=== PATIENT | female | born 1980 | race Caucasian/White ===

== ENCOUNTER 2019-06-18 06:02 | Inpatient (IN) ==
--- NOTE | 2019-06-17 12:51 | History & Physical Report ---
Date of Service June 17, 2019 Assessment & Plan (1) Supervision of elderly multigravida: IUP at 39 weeks presents for repeat section. the procedure & its risks were discussed in detail with the patient and her daughter. all questions were answered to her satisfaction. (2) H/O section: History of Present Illness Primary Care Provider: NO PCP Patient is a 39 yo white female EDC- 06/23/19 who presents at 39+ weeks for repeat . she was a late transfer from [place] at 33 weeks. is complicated by AMA and suspected ovarian cyst which has not changed in size on ultrasound. NST's have been reactive. GBS -negative/ blood type B- positive. Allergies Allergy/AdvReac Type Severity Reaction Status Date / Time ibuprofen Allergy Severe Anaphylaxis Verified 06/17/19 09:46 Home Medications Home Medications Medication Instructions Recorded Confirmed Type vit-iron fum-folic ac 1 tab PO DAILY 06/05/19 06/17/19 History [ Vitamin] Patient History Medical History (Updated 06/11/19 @ 13:34 by Shelly Trammell) Hx of ectopic Supervision of normal intrauterine in multigravida Varicella vaccine Surgical History History of salpingectomy Hx of LASIK Social History (Updated 05/06/19 @ 13:37 by Ca Pierre) Preferred Language: Maltese Communication Ability: Effective Beliefs That Will Affect Care: Gnosticist Gnosticist Beliefs: NO MEN IN ROOM marital status: marital status details: , in [place], Call Brother [phone] Current Living Situation: Family Current Living Situation Comment: lives with brother current occupational status: unemployed Feels Safe at Home: Yes Smoking Status: Never smoker Hx Alcohol Use: No Hx Substance Use: No Review of Systems All systems reviewed & are unremarkable except as noted in HPI & below Physical Exam Constitutional: WD/WN, vitals as above Respiratory: normal respiratory effort, lungs clear to auscultation Cardiovascular: RRR, no murmur, no edema Gastrointestinal (Abdomen): normal bowel sounds, soft, nontender, no hepatosplenomegaly Inspection/Auscultation: + abdominal surgical scar (well healed low transverse) Psychiatric: A+Ox3, euthymic affect Genitourinary: OB Exam Abdomen: + fundal height (37 cm), + heart tones (150), + vertex, + estimated weight (7-8 pounds) and + irregular contractions OB Exam Monitor Tracing: + external FHT monitor used, + external uterine monitor used, + category I and + normal FHT variability cervix exam declined
[~2019-06-18 06:02] MED LIST: CEFAZOLIN 2,000 MG in SYRINGE 0 ML IV SCH; CITRIC ACID/SODIUM CITRATE 15 ML UDC PO SCH; LACTATED RINGER'S 1,000 ML IV SCH
[2019-06-18] MEDS ORDERED: SODIUM CHLORIDE 0.9% 250 ML IV PRN (06:06)
[2019-06-18 06:25] LABS: Basophils # (auto) 0.01 K/uL (0-0.2); Basophils % (auto) 0.1 %; Eosinophils # (auto) 0.14 K/uL (0-0.5); Eosinophils % (auto) 2.1 %; Hematocrit (blood only) 38.4 % (37-47); Hemoglobin 12.5 g/dL (12.0-16.0); Immature Granulocytes # (auto) 0.08 K/uL (0.00-0.02); Immature Granulocytes % (auto) 1.2 %; Lymphocytes # (auto) 2.42 K/uL (1.2-3.4); Lymphocytes % (auto) 35.6 %; Mean Corpuscular Hemoglobin 22.3 pg (25-34); Mean Corpuscular Volume 68.4 fL (80-100); Mean Platelet Volume 10.8 fL (7.4-10.4); Monocytes # (auto) 0.66 K/uL (0.11-0.59); Monocytes % (auto) 9.7 %; Neutrophils # (auto) 3.48 K/uL (1.4-6.5); Neutrophils % (auto) 51.3 %; Platelet Count 173 K/uL (130-400); RDW Coefficient of Variation 14.7 % (11.5-14.5); RDW Standard Deviation 36.2 fL (36.4-46.3); Red Blood Count 5.61 M/uL (4.2-5.4); White Blood Count 6.79 K/uL (4.8-10.8)
[2019-06-18 06:34] LABS: Mean Corpuscular Hgb Conc 32.6 g/dL (32-36)
[2019-06-18 06:58] LABS: Microcytosis Present
[2019-06-18] MEDS ORDERED: MoRPHine SULFATE PF 1 MG/ML 10 ML AMP/VIAL ONE (07:14)
[2019-06-18] MEDS ORDERED: fentaNYL citrate 100 MCG/2 ML VIAL ONE (07:14)
--- NOTE | 2019-06-18 07:21 | History & Physical Bridge Note ---
Date of Service June 18, 2019 History & Physical Bridge Note I have examined the patient, reviewed the History & Physical and in the interval since the performance of the History & Physical I have noted the following changes of clinical significance: no changes noted
--- NOTE | 2019-06-18 07:25 | Anesthesiology Consultation ---
Date of Service June 18, 2019 Assessment & Plan (1) Encounter for pre-operative examination: Chart Review Chart Review: Acceptable Risk for Surgery and Patient NOT seen in Pre Admission Testing Consults Requested none ASA ASA2 Proposed Anesthesia Anesthesia Type: Spinal Risk / Benefits Reviewed With: PT / POA / Parent / Guardian, Accepts Plan and Informed Consent Obtained History Surgery Operation Date: 06/18/19 07:30 Proposed Procedures p Section in - Yeimi Khanna MD, FACOG Height/Weight Height: 5 ft 2 in Weight: 90.718 kg Allergies Allergy/AdvReac Type Severity Reaction Status Date / Time ibuprofen Allergy Severe Anaphylaxis Verified 06/18/19 06:43 acetaminophen Allergy Anaphylaxis Verified 06/18/19 06:43 [From Excedrin Migraine] aspirin Allergy Anaphylaxis Verified 06/18/19 06:43 [From Excedrin Migraine] caffeine Allergy Anaphylaxis Verified 06/18/19 06:43 [From Excedrin Migraine] Medications Home Medications Medication Instructions Recorded Confirmed Last Taken vit-iron fum-folic ac 1 tab PO DAILY 06/05/19 06/18/19 06/17/19 08:00 [ Vitamin] NPO Date Last Intake of Fluids: 06/18/19 Time Last Intake of Fluids: 04:30 Date Last Intake of Solids: 06/17/19 Time Last Intake of Solids: 23:59 Past Medical History Medical History Hx of ectopic Supervision of normal intrauterine in multigravida Varicella vaccine Exercise / Class Metabolic Activity III < 4 Walking/Shop/Light housework Negative for chest pain or shortness of breath. Past Family History Family History Mother Breast cancer Uncle Liver cancer Pancreatic cancer Grandmother Breast cancer Past Surgical History Surgical History History of salpingectomy Hx of LASIK Past Anesthesia History No Hx of Anesthesia Complications History of PONV History of PONV and Hx of Motion Sickness Social History Smoking Status: Never smoker Do You Dip or Chew Tobacco: No Hx Alcohol Use: No Hx Substance Use: No substance use type: does not use Review of Systems Patient denies history of abnormal bleeding or bleeding disorder. Patient denies active use of anticoagulants other than low dose aspirin. Patient denies numbness, tingling or weakness in lower extremities. Patient denies active symptoms of GERD. Physical Exam Vital Signs Last Vital Signs Temp 36.9 C 06/18/19 07:21 Pulse 88 06/18/19 07:21 Resp 18 06/18/19 07:21 BP 120/71 06/18/19 07:21 Constitutional not obese (Gravid uterus) ENMT Mouth: no TMJ abnormality and oral opening not small Thyromental Distance: > or= 3.5 Finger Breadths Mallampati Class: III Neck normal visual inspection; neck extension not limited Respiratory normal respiratory effort Auscultation: lungs clear to auscultation bilaterally Cardiovascular Rate/Rhythm: regular rate and regular rhythm Heart Sounds: no murmur Neurologic moves all extremities Motor/Sensory: no sensory deficit Psychiatric Orientation: alert and oriented x 3 Testing Laboratory Results 06/18/19 06:12 Blood Type B Positive 06/18/19 06:12 Antibody Screen NEGATIVE 06/18/19 06:12
[2019-06-18] MEDS ORDERED: OXYTOCIN 10 UNITS/ML VIAL ONE ×2 (08:15→08:29)
[2019-06-18] MEDS ORDERED: ONDANSETRON INJ 2 MG/ML 2 ML VIAL ONE (08:15)
[2019-06-18] MEDS ORDERED: SODIUM CHLORIDE 0.9% INJ 10 ML VIAL ONE (08:29)
[2019-06-18] MEDS ORDERED: NALOXONE HCL 1 MG in SODIUM CHLORIDE 0.9% 1000ML 1,000 ML IV PRN (08:52)
[2019-06-18] MEDS ORDERED: LACTATED RINGER'S 500 ML IV PRN (08:52)
[2019-06-18] MEDS ORDERED: MoRPHine SULFATE PF 1 MG/ML 10 ML AMP/VIAL INT SPINAL ONE (08:52)
[2019-06-18] MEDS ORDERED: ONDANSETRON INJ 2 MG/ML 2 ML VIAL IV PRN (08:52)
[2019-06-18] MEDS ORDERED: NALBUPHINE HCL INJ 10 MG/ML AMP IV PRN (08:52)
[2019-06-18] MEDS ORDERED: HYDROmorphone INJ 0.5 MG/0.5 ML SYR IV PRN (08:52)
[2019-06-18] MEDS ORDERED: NALOXONE HCL 0.4 MG/1 ML VIAL/CARP IV PRN (08:52)
[2019-06-18] MEDS ORDERED: DiphenhydrAMINE HCL 50 MG/ML VIAL IV PRN (08:52)
[2019-06-18] MEDS ORDERED: ePHEDrine sulfate 50 MG/ML AMP IV PRN (08:52)
[2019-06-18] MEDS ORDERED: ACETAMINOPHEN 1000 MG/100 ML IV IV PRN (08:52)
[2019-06-18] MEDS ORDERED: NALOXONE HCL 0.08 MG in SYRINGE 1.8 ML IV PRN (08:52)
[2019-06-18] MEDS ORDERED: NO NARCOTICS OR SEDATIVES SCH (09:00)
[2019-06-18] MEDS ORDERED: SODIUM CHLORIDE 0.9% 1000ML 1,000 ML IV SCH (09:00)
[2019-06-18] MEDS ORDERED: DC INTRASPINAL MORPHINE SCH (09:00)
--- NOTE | 2019-06-18 09:00 | Post Operative Brief Note ---
PG Immediate Post Op with CF Date of Surgery June 18, 2019 Pre & Post Diagnosis Operation Date: 06/18/19 07:30 Pre-Op Diagnosis: History of section x 2. Here for repeat section. Post-Op Diagnosis: History of section x 2. Here for repeat section. I identified the patient and participated in the time-out.: Yes Procedure Operation Date: 06/18/19 07:30 Actual Procedures p Section in LD(Not Applicable) - Yeimi Khanna MD, FACOG Surgeon Yeimi Khanna MD, FACOG Puller Out Chris Langston MD Estimated Blood Loss 500 Findings Consistent with Post-Op Diagnosis Specimens Specimen Description: A. Placenta - Hold B. Cord Blood Drains Nguyen Catheter
[2019-06-18] MEDS ORDERED: PHENYLEPHRINE 100MCG/ML 5ML SYR ONE (09:01)
[2019-06-18] MEDS ORDERED: MAGNESIUM HYDROXIDE SUSP 30 ML UDC PO PRN (09:01)
[2019-06-18] MEDS ORDERED: BENZOCAINE 20% AER SPR 82.5 GM CAN EXT PRN (09:01)
[2019-06-18] MEDS ORDERED: ePHEDrine sulfate 50 MG/ML SYR ONE (09:01)
[2019-06-18] MEDS ORDERED: SENNA 8.6 MG TAB PO PRN (09:01)
[2019-06-18] MEDS ORDERED: HYDROCORTISONE ACETATE 25 MG SUPP PR PRN (09:01)
[2019-06-18] MEDS ORDERED: DIPHTHERIA/TETANUS/PERTUSSIS 0.5 ML SYR/VIAL IM ONE (09:01)
[2019-06-18] MEDS ORDERED: SUPERCREAM 0.870% 15 GM JAR EXT PRN (09:01)
[2019-06-18] MEDS ORDERED: LACTATED RINGER'S 1,000 ML IV SCH (09:15)
[2019-06-18] MEDS ORDERED: OXYTOCIN 20 UNITS in LACTATED RINGER'S 1,000 ML IV SCH (09:15)
--- NOTE | 2019-06-18 09:39 | Anesthesiology Progress Note ---
Date of Service June 18, 2019 Anesthesia Post Procedure Vital Signs Vital Signs: Temp Pulse Resp BP Pulse Ox 06/18/19 09:37 80 98 06/18/19 09:32 82 100 06/18/19 09:30 78 100/55 L 06/18/19 09:27 74 99 06/18/19 09:22 80 97 06/18/19 09:20 73 103/52 L 06/18/19 09:19 73 115/59 L 06/18/19 09:17 76 97 06/18/19 09:12 77 99 06/18/19 09:11 80 115/65 06/18/19 07:21 36.9 C 88 18 120/71 06/18/19 06:18 106 H 134/86 Transfer of Care Handoff Completed per policy Notes Mental Status: alert / awake / arousable and participated in evaluation Nausea / Vomiting: adequately controlled Pain: adequately controlled Airway Patency, RR, SpO2: stable & adequate BP & HR: stable & adequate Hydration State: stable & adequate Neuraxial Anesthesia: was administered and sensory block is resolving Anesthetic Complications: no major complications apparent and Pt Satisfied with anesthetic care
--- NOTE | 2019-06-18 11:21 | Operative Report ---
DATE OF OPERATION: 06/18/2019 SURGEON: Yeimi Jeong MD. SENIOR GOVERNMENT PROGRAM ANALYST: Rolo Langston MD. PREOPERATIVE DIAGNOSES: Intrauterine at 39 weeks for repeat section. POSTOPERATIVE DIAGNOSES: Intrauterine at 39 weeks for repeat section, delivery of a 7-pound 11-ounce female, Apgars 8 and 9. PROCEDURE: Repeat low transverse section. HISTORY: The patient is a 39-year-old 3, para 2-0-0-2 white female who presents for repeat section. She understands the risks of the procedure and is willing to proceed. Her prior sections were done in [place]. GROSS FINDINGS: Uterus is gravid and consistent with a term in size. Bilateral fallopian tubes and ovaries are grossly normal. DESCRIPTION OF PROCEDURE: After the patient received adequate subarachnoid block, she was prepped and draped in usual sterile fashion. A low transverse skin incision was made through her prior scar and carried to the fascia with the Bovie. The Bovie was then entered with the scalpel and extended with Hewitt scissors transversely. The edges were then grasped with Edith clamps and the underlying rectus muscles bluntly and sharply dissected off the overlying fascia. The peritoneum was entered bluntly. The rectus muscles were then taken down with the scalpel. The bladder was taken down off the rectus muscles and then the bladder flap was developed using Metzenbaum scissors. The bladder was noted to be adherent high on the uterine fundus. After taking the bladder flap down and placed behind the bladder blade, the lower uterine segment was entered with a scalpel and extended transversely. Membranes were ruptured for a thinly stained meconium fluid. The was delivered from the vertex presentation with moderate fundal pressure. A nuchal cord x2 was reduced after delivering the head. Mouth and nasopharynx were suctioned upon delivery of the head as well. The rest of the infant delivered easily and the cord was then clamped and cut. The infant was crying vigorously and moving all 4 limbs. The infant was handed off to Dr. Mac who was in attendance as java web developer. The placenta was then expressed intact with a 3-vessel cord. Some retained membranes were removed with a Julia clamp. The uterine cavity was explored at this point, found to be free of any placental tissue or membranes. The placenta was exteriorized and covered with a clean lap sponge. The uterus was then closed in 2 layers in a running locking imbricating fashion. Two bleeding sites along the incision were secured with [id number] stitches of 0 Monocryl as well. The posterior cul-de-sac was then irrigated with normal saline. The incision was examined once more and continued to have excellent hemostasis. The uterus was placed back inside the abdominal cavity. The gutters were found to be free of any clot or fluid. The incision was examined once more and continued to have excellent hemostasis. The rectus muscles were brought together on the midline with individual stitches of 0 Monocryl. The fascia was closed in a running fashion with 0 Vicryl. After irrigating the adipose layer, the skin edges were reapproximated using a subcuticular stitch of 3-0 Vicryl. Mother and were doing well after delivery. I attest to the content of the Intraoperative Record and any orders documented therein. Any exception s are noted below.
[2019-06-18] MEDS: SIMETHICONE 80 MG CHEW PO SCH ×3 (14:44→20:33)
[2019-06-18] MEDS: DOCUSATE SODIUM 100 MG CAP PO SCH (20:32)
[2019-06-19] MEDS ORDERED: MEPERIDINE HCL 50 MG/ML CARP IV PRN (02:52)
[2019-06-19] MEDS ORDERED: ZOLPIDEM TARTRATE 5 MG TAB PO PRN (02:52)
[2019-06-19] MEDS ORDERED: PROMETHAZINE HCL 25 MG in SODIUM CHLORIDE 0.9% 50 ML IV PRN (02:52)
[2019-06-19] MEDS ORDERED: ONDANSETRON INJ 2 MG/ML 2 ML VIAL IV PRN (02:52)
[2019-06-19] MEDS ORDERED: DC INTRASPINAL MORPHINE ONE (02:52)
[2019-06-19] MEDS ORDERED: DiphenhydrAMINE HCL 50 MG/ML VIAL IV PRN (02:53)
[2019-06-19] MEDS: OXYCODONE/ACETAMINOPHEN 5mg/325mg TAB PO PRN ×6 (03:45→20:56)
--- NOTE | 2019-06-19 06:20 | Obstetrical Progress Note ---
Date of Service <Mare Martin DO - Last Filed: 06/19/19 07:07> June 19, 2019 Assessment & Plan <Mare Martin DO - Last Filed: 06/19/19 07:07> (1) Encounter for care and examination after delivery: 39 yo F POD#1 following repeat LTCS delivery at 39.2weeks, doing well and without complaints this morning. - POD #1. - Blood type B+, Rubella immune. - Feels well, ambulating well, voiding well. - Will continue routine care. - Following d/c will have f/u in 6 weeks. Subjective <Mare Martin - Last Filed: 06/19/19 07:07> Mariposa is a 39 yo female G; POD # 1 following section delivery at 39.2weeks; doing well this AM; no abdominal cramping/pain save for pain at incision site; voiding well, passing gas but no BM; tolerating meals overnight, able to ambulate some within the room. Pain 5/10 when walking around, however 2/10 when resting. Adequately controlled with PRN pain medications. 24 Hour I/Os: Intake: 2243 Output:4980 Review of Systems Constitutional: denies fever, chills, sweats, headache Respiratory: denies SOB, difficulty breathing Cardiac: denies CP, chest palpitations, chest pressure Breast: denies breast pain : denies dysuria Physical Exam <Mare Martin - Last Filed: 06/19/19 07:07> General: patient is alert and oriented, in NAD Cardiac: +S1/S2, no murmurs rubs or gallops Respiratory: lungs CTA b/l, anteriorly and posteriorly, no wheezes rales or rhonchi, no increased work of breathing, symmetric chest rise, no respiratory distress Abdomen: soft, NT, +bowel sounds Uterus: uterine fundus firm, palpable below the level of the umbilicus. Incision intact, non-tender, non-erythematous, no weeping from incision site Lower Extremities: no LE edema or swelling, no deep calf pain, Timmy's sign negative b/l Results & Data <Mare Ontiverosabdulaziz - Last Filed: 06/19/19 07:07> Vital Signs (Past 12 Hours) Vital Signs Temp Pulse Resp BP Pulse Ox 06/19/19 03:20 36.9 C 93 H 17 111/69 97 06/19/19 02:30 17 95 06/19/19 01:30 16 96 06/19/19 00:30 16 95 06/18/19 23:30 36.8 C 91 H 16 102/66 97 06/18/19 22:30 18 98 06/18/19 21:30 17 98 06/18/19 20:30 16 97 06/18/19 19:40 36.9 C 88 17 110/76 98 06/18/19 19:30 17 98 06/18/19 18:30 18 99 Laboratory Results Laboratory Results - last 24 hr 06/18/19 06:12 Blood Type B Positive Antibody Screen NEGATIVE Crossmatch See Detail Medications Administered Current Medications Acetaminophen (Ofirmev) 1,000 mg IV Q8 PRN PRN Reason: Pain Stop: 06/21/19 08:51 Last Admin: 06/18/19 12:04 Dose: 1,000 mg Documented by: Benzocaine (Dermoplast Pain Relieving [place]) 1 appln EXT UD PRN PRN Reason: use on skin as needed Stop: 07/18/19 09:00 Bisacodyl (Dulcolax) 5 mg PO 1999 [facility] Stop: 06/19/19 20:01 Bisacodyl (Dulcolax) 10 mg AR PRN PRN PRN Reason: Constipation Stop: 07/20/19 09:00 Cocaine HCl (Supercream 0.870%) 1 gm EXT UD PRN PRN Reason: hemmorrhoidal inflammation Stop: 07/02/19 09:00 Diphenhydramine HCl (Benadryl) 25 mg IV QID PRN PRN Reason: Itching Stop: 07/19/19 02:52 Diphenhydramine HCl (Benadryl Capsule) 25 mg PO QID PRN PRN Reason: Itching Stop: 07/19/19 02:52 Docusate Sodium (Colace) 100 mg PO DAILY@, [facility] Stop: 07/18/19 20:59 Last Admin: 06/18/19 20:32 Dose: 100 mg Documented by: Ferrous Sulfate (Feosol) 325 mg PO DAILY@ [facility] Stop: 07/19/19 07:59 Hydrocortisone (Anusol Hc) 25 mg [place] BID PRN PRN Reason: Hemorrhoids Stop: 07/18/19 09:00 Lactated Ringer's (Lr) 1,000 mls @ 125 mls/hr IV .Q8H JUN Stop: 07/18/19 09:14 Last Infusion: 06/19/19 03:20 Dose: Infused Documented by: Oxytocin 20 units/ Lactated (Ringer's) 1,002 mls @ 125 mls/hr IV .Q8H1M JUN Stop: 07/18/19 09:14 Last Infusion: 06/18/19 20:33 Dose: Infused Documented by: Promethazine HCl 25 mg/ Sodium (Chloride) 51 mls @ 204 mls/hr IV Q4H PRN PRN Reason: Nausea And Vomiting Stop: 07/19/19 02:51 Magnesium Hydroxide (Milk Of Magnesia) 30 ml PO HS PRN PRN Reason: Constipation Stop: 07/18/19 09:00 Meperidine HCl (Demerol) 50 - 75 mg IV Q4H PRN PRN Reason: Pain Stop: 07/03/19 02:51 Ondansetron HCl (Zofran) 4 mg IV Q4H PRN PRN Reason: Nausea And Vomiting Stop: 07/19/19 02:51 Oxycodone/Acetaminophen (Percocet 5mg/325mg) 1 - 2 tab PO Q4H PRN PRN Reason: Pain Stop: 07/03/19 02:51 Last Admin: 06/19/19 03:45 Dose: 1 tab Documented by: Prenat Multivit/[place]/Iron/Folic Ac ( Vitamin) 1 tab PO DAILY@08 [facility] Stop: 07/19/19 07:59 Sennosides (Senokot) 17.2 mg PO HS PRN PRN Reason: Constipation Stop: 07/18/19 09:00 Simethicone (Mylicon) 80 mg PO DAILY@08,13,17,21 [facility] Stop: 07/18/19 12:59 Last Admin: 06/18/19 20:33 Dose: 80 mg Documented by: Zolpidem Tartrate (Ambien) 5 mg PO HS PRN PRN Reason: Sleep Stop: 07/19/19 02:51 <Yeimi Khanna MD, FACOG - Last Filed: 06/19/19 08:09> Co-Signing Physician Notes Resident Physician Supervision Note: I interviewed and examined the patient. Discussed with Dr. Martin and agree with findings and plan as documented in the note. Any exceptions or clarifications are listed here: [None] Documented By: Yeimi Khanna MD, FACOG Resident Activity Tracking <Mare Martin, DO - Last Filed: 06/19/19 07:07> Resident Involvement: Resident Care Provided Care Provided: OB Delivery
--- NOTE | 2019-06-19 07:29 | Anesthesiology Progress Note ---
Date of Service June 19, 2019 Anesthesia Post Procedure Vital Signs Vital Signs: Temp Pulse Pulse Resp BP BP Pulse Ox 06/19/19 03:20 36.9 C 93 H 17 111/69 97 06/19/19 02:30 17 95 06/19/19 01:30 16 96 06/19/19 00:30 16 95 06/18/19 23:30 36.8 C 91 H 16 102/66 97 06/18/19 22:30 18 98 06/18/19 21:30 17 98 06/18/19 20:30 16 97 06/18/19 19:40 36.9 C 88 17 110/76 98 06/18/19 19:30 17 98 06/18/19 18:30 18 99 06/18/19 17:15 20 98 06/18/19 16:05 18 96 06/18/19 15:15 18 96 06/18/19 14:15 16 99 06/18/19 13:40 16 98 06/18/19 12:10 16 99 06/18/19 11:50 16 100 06/18/19 11:37 74 99 06/18/19 11:32 76 98 06/18/19 11:27 78 99 06/18/19 11:22 72 98 06/18/19 11:17 77 99 06/18/19 11:12 72 110/58 L 99 06/18/19 11:10 36.6 C 75 16 110/58 L 100 06/18/19 11:07 66 98 06/18/19 11:02 64 99 06/18/19 10:57 69 98 06/18/19 10:52 73 98 06/18/19 10:47 86 99 06/18/19 10:42 82 98 06/18/19 10:41 68 116/57 L 06/18/19 10:40 68 16 116/57 L 98 06/18/19 10:37 74 98 06/18/19 10:32 72 98 06/18/19 10:30 83 108/59 L 06/18/19 10:27 76 98 06/18/19 10:22 72 98 06/18/19 10:20 79 111/53 L 06/18/19 10:17 79 98 06/18/19 10:12 72 100 06/18/19 10:10 36.3 C L 70 16 98/54 L 100 06/18/19 10:07 75 99 06/18/19 10:02 87 97 06/18/19 10:00 77 16 99/57 L 99 06/18/19 09:57 76 99 06/18/19 09:52 81 100 06/18/19 09:50 73 16 93/55 L 100 06/18/19 09:47 80 98 06/18/19 09:42 74 99 06/18/19 09:40 80 16 93/55 L 99 06/18/19 09:37 80 98 06/18/19 09:32 82 100 06/18/19 09:30 78 16 110/55 L 97 06/18/19 09:27 74 99 06/18/19 09:22 80 97 06/18/19 09:20 73 16 115/59 L 97 06/18/19 09:19 73 115/59 L 06/18/19 09:17 76 97 06/18/19 09:12 77 99 06/18/19 09:11 80 115/65 06/18/19 09:10 36.3 C L 80 80 16 115/65 115/65 99 Pain Intensity Lower Medial Abdomen: Pain Intensity: 3 Transfer of Care Handoff Completed per policy Notes Mental Status: alert / awake / arousable Patient Amnestic to Procedure: Yes Nausea / Vomiting: adequately controlled Pain: adequately controlled Airway Patency, RR, SpO2: stable & adequate BP & HR: stable & adequate Hydration State: stable & adequate Neuraxial Anesthesia: was administered and sensory block resolved Anesthetic Complications: no major complications apparent and Pt Satisfied with anesthetic care
[2019-06-19 07:50] LABS: Basophils # (auto) 0.01 K/uL (0-0.2); Basophils % (auto) 0.1 %; Eosinophils # (auto) 0.06 K/uL (0-0.5); Eosinophils % (auto) 0.6 %; Hematocrit (blood only) 34.8 % (37-47); Hemoglobin 11.3 g/dL (12.0-16.0); Immature Granulocytes # (auto) 0.05 K/uL (0.00-0.02); Immature Granulocytes % (auto) 0.5 %; Lymphocytes # (auto) 1.35 K/uL (1.2-3.4); Lymphocytes % (auto) 13.5 %; Mean Corpuscular Hemoglobin 22.4 pg (25-34); Mean Corpuscular Hgb Conc 32.5 g/dL (32-36); Mean Corpuscular Volume 68.9 fL (80-100); Mean Platelet Volume 10.4 fL (7.4-10.4); Monocytes # (auto) 0.86 K/uL (0.11-0.59); Monocytes % (auto) 8.6 %; Neutrophils # (auto) 7.65 K/uL (1.4-6.5); Neutrophils % (auto) 76.7 %; Platelet Count 169 K/uL (130-400); RDW Coefficient of Variation 14.7 % (11.5-14.5); RDW Standard Deviation 36.5 fL (36.4-46.3); Red Blood Count 5.05 M/uL (4.2-5.4); White Blood Count 9.98 K/uL (4.8-10.8)
[2019-06-19 08:29] LABS: Microcytosis Present
[2019-06-19] MEDS: FERROUS SULFATE 325 MG TAB PO SCH (08:51)
[2019-06-19] MEDS: SIMETHICONE 80 MG CHEW PO SCH ×4 (08:51→20:56)
[2019-06-19] MEDS: PRENATAL VITAMIN 1 TAB PO SCH (08:51)
[2019-06-19] MEDS: DOCUSATE SODIUM 100 MG CAP PO SCH ×2 (08:51→20:56)
[2019-06-19] MEDS ORDERED: bisacodyL 5 MG TABEC PO SCH (20:00)
[2019-06-20] MEDS: OXYCODONE/ACETAMINOPHEN 5mg/325mg TAB PO PRN ×6 (00:44→20:52)
--- NOTE | 2019-06-20 06:08 | Obstetrical Progress Note ---
Date of Service June 20, 2019 Assessment & Plan (1) Encounter for care and examination after delivery: 39 yo F POD#2 following repeat LTCS delivery at 39.2weeks, doing well and without complaints this morning. - POD #2. - Blood type B+, Rubella immune. - Feels well, ambulating well, voiding well. - Will continue routine care. - Following d/c will have f/u in 6 weeks. Subjective Mariposa is a 39 yo female G; POD # 1 following section delivery at 39.2weeks; doing well this AM; no abdominal cramping/pain save for pain at incision site; voiding well, passing gas but no BM; tolerating meals overnight, able to ambulate some within the room. Pain adequately controlled with PRN pain medications. Review of Systems Constitutional: denies fever, chills, sweats, headache Respiratory: denies SOB, difficulty breathing Cardiac: denies CP, chest palpitations, chest pressure Breast: denies breast pain : denies dysuria Physical Exam General: patient is alert and oriented, in NAD Cardiac: +S1/S2, no murmurs rubs or gallops Respiratory: lungs CTA b/l, anteriorly and posteriorly, no wheezes rales or rhonchi, no increased work of breathing, symmetric chest rise, no respiratory distress Abdomen: soft, NT, +bowel sounds Uterus: uterine fundus firm, palpable below the level of the umbilicus. Incision intact, non-tender, non-erythematous, no weeping from incision site Lower Extremities: no LE edema or swelling, no deep calf pain, Timmy's sign negative b/l Results & Data Vital Signs (Past 12 Hours) Vital Signs Temp Pulse Resp BP 06/19/19 23:55 37.4 C 94 H 18 107/72 Medications Administered Current Medications Acetaminophen (Ofirmev) 1,000 mg IV Q8 PRN PRN Reason: Pain Stop: 06/21/19 08:51 Last Admin: 06/18/19 12:04 Dose: 1,000 mg Documented by: Benzocaine (Dermoplast Pain Relieving [place]) 1 appln EXT UD PRN PRN Reason: use on skin as needed Stop: 07/18/19 09:00 Bisacodyl (Dulcolax) 10 mg [place] PRN PRN PRN Reason: Constipation Stop: 07/20/19 09:00 Cocaine HCl (Supercream 0.870%) 1 gm EXT UD PRN PRN Reason: hemmorrhoidal inflammation Stop: 07/02/19 09:00 Diphenhydramine HCl (Benadryl) 25 mg IV QID PRN PRN Reason: Itching Stop: 07/19/19 02:52 Diphenhydramine HCl (Benadryl Capsule) 25 mg PO QID PRN PRN Reason: Itching Stop: 07/19/19 02:52 Docusate Sodium (Colace) 100 mg PO DAILY@08, [facility] Stop: 07/18/19 20:59 Last Admin: 06/19/19 20:56 Dose: 100 mg Documented by: Ferrous Sulfate (Feosol) 325 mg PO DAILY@ [facility] Stop: 07/19/19 07:59 Last Admin: 06/19/19 08:51 Dose: 325 mg Documented by: Hydrocortisone (Anusol Hc) 25 mg [place] BID PRN PRN Reason: Hemorrhoids Stop: 07/18/19 09:00 Lactated Ringer's (Lr) 1,000 mls @ 125 mls/hr IV .Q8H JUN Stop: 07/18/19 09:14 Last Infusion: 06/19/19 03:20 Dose: Infused Documented by: Oxytocin 20 units/ Lactated (Ringer's) 1,002 mls @ 125 mls/hr IV .Q8H1M [facility] Stop: 07/18/19 09:14 Last Infusion: 06/18/19 20:33 Dose: Infused Documented by: Promethazine HCl 25 mg/ Sodium (Chloride) 51 mls @ 204 mls/hr IV Q4H PRN PRN Reason: Nausea And Vomiting Stop: 07/19/19 02:51 Magnesium Hydroxide (Milk Of Magnesia) 30 ml PO HS PRN PRN Reason: Constipation Stop: 07/18/19 09:00 Meperidine HCl (Demerol) 50 - 75 mg IV Q4H PRN PRN Reason: Pain Stop: 07/03/19 02:51 Ondansetron HCl (Zofran) 4 mg IV Q4H PRN PRN Reason: Nausea And Vomiting Stop: 07/19/19 02:51 Oxycodone/Acetaminophen (Percocet 5mg/325mg) 1 - 2 tab PO Q4H PRN PRN Reason: Pain Stop: 07/03/19 02:51 Last Admin: 06/20/19 05:56 Dose: 1 tab Documented by: [place] Multivit/[place]/Iron/Folic Ac ( Vitamin) 1 tab PO DAILY@08 [facility] Stop: 07/19/19 07:59 Last Admin: 06/19/19 08:51 Dose: 1 tab Documented by: Sennosides (Senokot) 17.2 mg PO HS PRN PRN Reason: Constipation Stop: 07/18/19 09:00 Simethicone (Mylicon) 80 mg PO DAILY@08,13,17,21 [facility] Stop: 07/18/19 12:59 Last Admin: 06/19/19 20:56 Dose: 80 mg Documented by: Zolpidem Tartrate (Ambien) 5 mg PO HS PRN PRN Reason: Sleep Stop: 07/19/19 02:51
[2019-06-20 07:15] LABS: Hematocrit (blood only) 33.9 % (37-47); Hemoglobin 10.7 g/dL (12.0-16.0)
--- NOTE | 2019-06-20 07:41 | Obstetrical Progress Note ---
Date of Service June 20, 2019 Assessment & Plan (1) Encounter for care and examination after delivery: POD #2 s/p repeat c/s x 3. doing well. i inspected pads in BR and not impressed with excessive bleeding, will see what hgb shows and what her bleeding does with more time. will ambulate and let us know if her right leg pain continues. po pain meds. discussed hemorrhoid and expectations. answered alot of questions. she thinks she wants to go home after noon today, will send script for pain meds Subjective Ambulation: ambulating normally Voiding: no voiding problems Passing Gas:: Yes Diet Tolerance:: regular diet Lochia:: Small (pt concerned its excessive) Feeding Type:: breast feeding concerned that overnight had heavier bleeding. pads in bathroom trash. no cp or sob. has muscle strain of right calf. improved with flexing her foot, that just began. using percocet for pain management. worried about hemorrhoid which is not bothering her but sticking out. tevin po, voiding well. Physical Exam Constitutional WD/WN, vitals as above Respiratory normal respiratory effort, lungs clear to auscultation Cardiovascular Rate/Rhythm: regular rate and regular rhythm Gastrointestinal (Abdomen) Inspection/Auscultation: + abdominal surgical incision (c/d/o) Percussion/Palpation: + abdomen tender (mild appropriate tenderness, ff 2 down. ) and abdomen soft Musculoskeletal nt calves, no cord or redness, R=L in size, neg alvaro's, tr edema bilaterally Neurologic grosslynormal Psychiatric A+Ox3, euthymic affect Results & Data Vital Signs (Past 12 Hours) Vital Signs Temp Pulse Resp BP 06/19/19 23:55 99.3 F 94 H 18 107/72
[2019-06-20] MEDS ORDERED: bisacodyL 10 MG SUPP PR PRN (09:01)
[2019-06-20] MEDS: DOCUSATE SODIUM 100 MG CAP PO SCH ×2 (09:28→20:52)
[2019-06-20] MEDS: SIMETHICONE 80 MG CHEW PO SCH ×4 (09:28→20:52)
[2019-06-20] MEDS: PRENATAL VITAMIN 1 TAB PO SCH (09:28)
[2019-06-20] MEDS: FERROUS SULFATE 325 MG TAB PO SCH (09:28)
[2019-06-20 15:33] VITALS: O2SAT 98
[2019-06-21 00:58] VITALS: BP 133/81; TEMP 99.1
[2019-06-21] MEDS: OXYCODONE/ACETAMINOPHEN 5mg/325mg TAB PO PRN ×3 (02:20→12:43)
[2019-06-21] MEDS: SIMETHICONE 80 MG CHEW PO SCH ×2 (08:14→12:43)
[2019-06-21] MEDS: DOCUSATE SODIUM 100 MG CAP PO SCH (08:15)
[2019-06-21] MEDS: PRENATAL VITAMIN 1 TAB PO SCH (08:16)
[2019-06-21] MEDS: FERROUS SULFATE 325 MG TAB PO SCH (08:16)
--- NOTE | 2019-06-21 08:49 | Obstetrical Progress Note ---
Date of Service June 21, 2019 Assessment & Plan (1) Encounter for care and examination after delivery: - d/c instructions reviewed again - f/u in 6 weeks for check Subjective d/c canceled 06/20 because of baby, patient ready for d/c today Physical Exam Constitutional WD/WN, vitals as above Respiratory normal respiratory effort, lungs clear to auscultation Cardiovascular RRR, no murmur, no edema Gastrointestinal (Abdomen) Incision intact, appropriate post-op tenderness Musculoskeletal (-) deep calf tenderness Results & Data Vital Signs (Past 12 Hours) Vital Signs Temp Pulse Resp BP Pulse Ox 06/21/19 00:00 99.1 F 85 16 133/81 98
[2019-06-21 11:19] VITALS: PULSE 75
--- NOTE | 2019-06-23 07:59 | Discharge Summary ---
PRINCIPAL DIAGNOSES: Intrauterine at 39 weeks, section x2. PRINCIPAL PROCEDURE: Repeat low transverse section. HISTORY OF PRESENT ILLNESS: The patient is a 39-year-old white female G3, P2-0-0-2, EDC of 06/23/2019 who presents at 39 weeks for repeat section. She was a late transfer from [place] at 33 weeks' gestation. Her was complicated by advanced paternal age and suspected ovarian cyst which remained stable on ultrasounds at our facility. She underwent the repeat section without complications. She remained afebrile throughout her hospital stay. Pain was controlled with p.o. Percocet. SHE IS ALLERGIC TO IBUPROFEN. She was ambulating and eating regular diet by her 1st postop day. Hemoglobin on admission was 12.5, hematocrit of 38.4. First postop day hemoglobin 11.3, hematocrit 34.8. Second postop day hemoglobin 10.7, hematocrit 33.9. She was sent home in good condition with prescription for Percocet 1-2 tablets p.o. q. 4 hours p.r.n. pain. She can also take plain Tylenol 650 mg p.o. q. 4-6 hours p.r.n. pain as well. She is to be seen in the office in 6 weeks for followup visit. She is to call for temperature of 101 degrees or higher, heavy vaginal bleeding, burning with urination, increased redness, drainage or pain from her incision, calf tenderness or any other concerns.
== END 2019-06-21 15:00 | disposition home or self-care (01) | DRG 788 ==
LOC: 4S1 06:02 → 4S2 11:50 → EDSTATUS 06-19 07:30